=== PATIENT | female | born 1990 | race Caucasian/White ===

== ENCOUNTER 2019-11-12 10:02 | Inpatient (IN) | payer BC ==
[~2019-11-12] VITALS: Ht 165.1 cm; Wt 79.1 kg
[2019-11-12] VITALS (21 sets, daily range): BP systolic 101–133; BP diastolic 48–78; PULSE 60–94; TEMP 97.8–98.7
--- NOTE | 2019-11-12 10:00 | NUR ---
Pt arrives on unit ambulatory with spouse. State ctx that began at 0300 and have increased. Denies vaginal bleeding, LOF, and reports GFM. EFM and toco applied. VSS. SVE per this RN -. Dr. Gee notified. Orders for admission. Pt updated on POC.
--- NOTE | 2019-11-12 10:00 | NUR ---
1000-G4L3 39[address] Carolina' to unit with complaint of contractions since 033. Denies LOF or VB. Reports GFM. Reacitive FHR, VSS, SVE 5-/-2. PATRICIO. Updated Dr. Gee who is online merchandiser. Orders recieved to admit patient. 1025-IV to left hand, blood collected and sent to lab per orders. Assessment complete. Consents reviewed and signed. Patient to BB. Updated on plan of care
[~2019-11-12 10:02] MED LIST: PRENATAL1 TA1 PO; TUMS500 MG
[2019-11-12] MEDS ORDERED: PRENATAL (10:55)
[2019-11-12 10:56] LABS: BASO % 0.4 % (0.0-2.0); EOS # 0.1 (0.0-0.7); EOS % 0.7 % (0-4.0); GRAN # 8.6 (1.4-6.5); GRAN % 76.3 % (42.2-75.2); HEMATOCRIT 40.5 % (37.0-47.0); HEMOGLOBIN 13.4 g/dl (12.5-16.0); LYMPH # 1.5 (1.2-3.4); LYMPH % 13.1 % (20.0-51.0); MEAN CELL VOLUME 92 fl (80.0-100.0); MEAN CORPUSCULAR HEMOGLOBIN 30 pg (27.0-31.0); MEAN CORPUSCULAR HGB CONC 33 g/dl (33.0-37.0); MEAN PLATELET VOLUME 11.8 fl (7.4-10.4); MONO # 0.9 (0.1-0.6); MONO % 8.3 % (1.7-9.3); PLATELET COUNT 197 K/mm3 (130-400); RED BLOOD COUNT 4.42 M/mm3 (4.10-5.30); REDCELL DISTRIBUTION WIDTH-CV 13.2 % (11.5-14.5)
[2019-11-12] MEDS ORDERED: UNISOM25 MG (10:56)
[2019-11-12] MEDS ORDERED: VITAMIN B-625 MG (10:57)
--- NOTE | 2019-11-12 11:05 | NUR ---
1105-GASTON Schmidt notified of patients request for epidural. 1120-GASTON Schmidt to patient room. Patient sitting upright on bedside for placement. 1127-SS administered by GASTON Schmidt. VSS. 1130-Test dose by GASTON Schmidt, VSS see anesthesia records. Repostioned patient WL. Updated on plan of care and safety. 1205-Akers to DD, clear yellow urine. SVE 7-8/100/-2 with buldging bag of fluid. Updated Dr. Gee.
--- NOTE | 2019-11-12 12:25 | NUR ---
1225-Patient reports 'pressure' with contractions. Used JUMBO OPERATOR epidural. Notified Dr. Gee. Akers discontinued. 1335-Dr. Gee to room. Patient begins pushing with Dr. Gee at bedside. Moves vertex well. 1338-Spontaneous delivery of head, nuchal cord x1 reduced by MD. immediate delivery of body followewd. Viable female to mothers abdoemen. Cord clamped x2 and cut by FOB. 1340-Spontaneous delivery of intact placenta by MD. Fundal massage firm. Lochia WNL EBL 200ml. Pitocin bolus per MD order and protocol. Cyn care provided. 1st degrre noted by Dr. Gee not requiring suture. Updated patient on plan of care and safety.
--- NOTE | 2019-11-12 12:37 | NUR ---
1237- Roles on unit. Reviews FHR monitor. In to see patient. SVE by MD Forbes/Angella/100/-1, AROM by MD jara [facility].
[2019-11-13 03:30] VITALS: BP 123/61; PULSE 65; TEMP 98.2
[2019-11-13 07:30] VITALS: BP 105/59; PULSE 71; TEMP 98.3
[2019-11-13] MEDS ORDERED: IBU600 MG PO (08:50)
[2019-11-13 12:00] VITALS: BP 117/78; PULSE 58; TEMP 98.8
--- NOTE | 2019-11-13 15:00 | NUR ---
1500-Reviewed discharge instructions with patient. Denies questions. Instructed on need to schedule 6 week apt. Verbalized understanding. 1505-Ambulatory off unit with spouse and .
== END 2019-11-13 15:05 | disposition home or self-care (01) | DRG 807 ==
LOC: LDRO 10:02 → LDR 10:15 → OB 19:00
PROVIDERS: Obstetrics & Gynecology; ADMIT Obstetrics & Gynecology
PROC: 10E0XZZ Delivery of Products of Conception, External Approach (ICD-10-PCS; principal; 2019-11-12)
PROC: 0HQ9XZZ Repair Perineum Skin, External Approach (ICD-10-PCS; 2019-11-12)
DX: O69.81X0 Labor and delivery complicated by cord around neck, without compression, not applicable or unspecified (principal); Z37.0 Single live birth; O70.0 First degree perineal laceration during delivery; Z3A.39 39 weeks gestation of pregnancy
CPT/HCPCS: J2405; J2590; J2795; J7120

== ENCOUNTER → 2019-11-27 | Outpatient (CLI) | payer BC ==
[~2019-11-27] MED LIST changes: +IBU600 MG PO; +PRENATAL; +UNISOM25 MG; +VITAMIN B-625 MG
--- NOTE | 2019-11-27 11:15 | NUR ---
Pt, Abril Small, presents for outpatient consult with two week old baby girl, Janay Small. Pt reports cracking nipples. Janay was born on [birth year]/19 and is pt's 4th baby. She has nursed her other babies successfully but she is having difficulty with Janay's latch improving. Janay's weight was 6#10.9oz (3030 gms). Her lowest reported weight was 6#9oz on 11/17/19 at her first well baby visit. Today Janay weighs 7#1.8oz (3276 gms). Pt reports Janay nurses 12 times per day and has QS output. Her milk supply is abundant. LC notes pt has cracks to both nipples consistent with a pulling traction on the nipple. Pt places baby to breast, handling the baby and breast well. After latching LC demonstrates to pt how she can roll the top and bottom lip out further and is coached to keep Riley cheecks in contact with the breast so she isn't drifting away, causing the pulling on the breast tissue. Pt states this is much more comfortable. She is able to latch to the second side and with the minor tug on the chin the baby's lip rolls out better. After Janay has a weight gain of 3.2oz (92 gms). This LC left a message with Dr. Carolina' nurse re: Morales's Nipple Cream. Pt instructed on it's use. POC: Continue ad andrew, monitoring the bottom lip and keeping baby's cheek close to the breast. F/U: As scheduled with doctors, none with LC at this time.
== END ==
LOC: LAC 08:53
DX: Z39.1 Encounter for care and examination of lactating mother (principal); Z71.89 Other specified counseling